=== PATIENT | male | born 1940 | race Hispanic/Latino ===

== ENCOUNTER 2025-02-10 11:56 | Day surgery (SDC) | payer OTHER, SELFPAY ==
[2025-02-10] VITALS (10 sets, daily range): BP systolic 103–116; BP diastolic 57–70; BMI 27.6
[2025-02-10] MEDS: LOW STRENGTH ASPIRIN 324 MG PO (13:17)
[2025-02-10] MEDS: NSS 226 ML IV (13:18)
--- NOTE | 2025-02-10 17:23 | ITS.CL.CATH ---
Search Analyst - Catheterization
Cardiac Catheterization
Procedure Report:
LEFT HEART CATHETERIZATION
Date of Procedure: February 10, 2025
Procedures performed:
1: Coronary angiography
2: Left ventricular hemodynamic assessment
Primary Care Physician: JOSSELIN Alonzo
Primary Flatwork Assembler: Dr. Baljinder Gutierrez
INDICATION: The patient is an 85-year-old man with a past medical history significant for moderate aortic valvular stenosis, hypertension, hyperlipidemia, and atypical chest pains who is referred for cardiac catheterization after experiencing more
atypical chest pain and a nuclear perfusion scan which now suggests possible LAD territory ischemia. Previous nuclear perfusion imaging in 2019 did not suggest LAD territory ischemia.
ACCESS: The patient was prepped and draped in usual sterile fashion. A 6 [place] sheath was placed in the right radial artery using the Seldinger over the wire technique.
HEMODYNAMIC FINDINGS (mmHg):
LV(s/d,EDP): 125/13, 15
Ao(s/d,m): 108/57, 75
Mean gradient across the aortic valve on pullback: 20 mmHg
ANGIOGRAPHIC FINDINGS:
Single-plane Left Ventriculography in [facility] Projection: Not done. LVEF by recent noninvasive studies was normal. The LV ejection fraction was 65% by Mathias's method with moderate to severe left ventricular hypertrophy and moderate aortic valve
stenosis with a mean gradient of 20 mmHg on echo October 12, 2024.
Coronary Angiography:
Dominance: Right
Left Main: Normal.
Left Anterior Descending: The left anterior descending artery is a large caliber vessel that has a true ostial 80% stenosis. The LAD is moderately calcified throughout with moderate luminal irregularities and a focal mid 60 to 70% stenosis. This
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 The distal vessels have mild luminal irregularities with normal flow.
Left Circumflex: The left circumflex is a large-caliber nondominant system that gives rise to 2 major distal obtuse marginal branches. These vessels have mild to moderate nonobstructive luminal irregularities throughout with normal flow.
Right Coronary: The right coronary artery is a medium caliber dominant vessel that gives rise to a relatively small branching posterior descending artery and small PLV branch system. The ostium has a calcific 50% stenosis with mild catheter
dampening with 6 [place] engagement from the radial approach. The proximal right has a phillips's crook appearance and has moderate nonobstructive luminal irregularities throughout the AV groove with at worst a 40% stenosis at the acute margin. The
posterior descending artery trifurcates into 3 vessels that have severe small vessel disease not amenable to percutaneous or surgical revascularization. The PLV branch system is small but widely patent.
Fluoroscopy Time (min): 5.4
Radiation Dose (mGy): 542
DAP (Gy.cm2): 33
Closure device: None. A TR band was applied for hemostasis at the right wrist.
Complications: None.
ASSESSMENT:
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 Disease in the distal right sided posterior descending artery is not amenable to intervention.
2: Moderate aortic valvular stenosis.
3: Well compensated left ventricular filling pressures.
CONCLUSIONS and RECOMMENDATIONS:
1: Formal CT surgical evaluation given true ostial LAD complicated by mid LAD obstructive disease. Advanced age may make surgical revascularization less attractive. Prior to proceeding with what would be a high risk PCI I would like formal CT
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 His valve disease is certainly not bad
enough to be driving symptoms however he will need a valve intervention at some point in the next several years. Will discuss with CT surgeon Dr. Yunior Valero.
2: Continue medical therapy with close clinical follow-up with Dr. Gutierrez as scheduled.
Stephanie Morrow M.D.
Copy to: JOSSELIN Alonzo
== END 2025-02-10 18:04 | disposition home or self-care (01) ==
LOC: CATH 11:56
PROVIDERS: ATTENDING PHYSICIAN Internal Medicine Interventional Cardiology; PRIMARYCARE PHYSICIAN Nurse Practitioner Adult Health; REFERRING PHYSICIAN Internal Medicine Cardiovascular Disease
DX: I25.10 Atherosclerotic heart disease of native coronary artery without angina pectoris (principal); I35.0 Nonrheumatic aortic (valve) stenosis; R07.89 Other chest pain; E78.5 Hyperlipidemia, unspecified; Q24.5 Malformation of coronary vessels
CPT/HCPCS: 93005; 93458; C1769; C1894; Q9967

== ENCOUNTER 2025-03-17 12:26 | Day surgery (SDC) | payer OTHER, SELFPAY ==
[2025-03-17] VITALS (17 sets, daily range): BP systolic 100–132; BP diastolic 59–72; BMI 27.0
[2025-03-17 12:55] LABS: Hematocrit 38.9 % (39.0-52.0); Hemoglobin 12.8 g/dL (13.0-18.0); Mean Corp Hgb Conc. 32.9 g/dL (33.0-37.0); Mean Corpuscular Volume 85.9 fL (80.0-94.0); Platelet Count 231 10^3/uL (130-400); Red Cell Dist. Width 14.3 % (11.5-14.5)
[2025-03-17 13:38] LABS: Blood Urea Nitrogen 28 mg/dl (9-20); Calcium 9.2 mg/dl (8.4-10.2); Carbon Dioxide 26 mmol/L (22-30); Chloride 105 mmol/L (98-107); Estimated Creatinine Clearance 52 ml/min; Glucose 94 mg/dl (70-99); Potassium 4.7 mmol/L (3.5-5.1); Sodium 138 mmol/L (135-145); eGFR > 60.00
--- NOTE | 2025-03-17 14:37 | ITS.CL.ANGIO ---
Site Leader - Angioplasty
Angioplasty
Procedure Report:
LEFT HEART CATHETERIZATION
Date of Procedure: March 17, 2025
Procedures performed:
1: Percutaneous coronary intervention of the ostial and mid LAD with placement of 2 drug-eluting stents (3.0 x 30 mm [place] ROSARIO to prox/mid and 3.5 x 18 mm [place] ROSARIO to ostial LAD postdilated at high pressure with a 3.75 mm diameter noncompliant
balloon)
Primary Care Provider: JOSESLIN Alonzo
Primary Shoe Lining Fitter: Dr. Baljinder Gutierrez
INDICATION: The patient is an 85-year-old man with a past medical history significant for moderate aortic valvular stenosis, hypertension, hyperlipidemia, and atypical chest pains who was referred for cardiac catheterization after experiencing more
atypical chest pain and a nuclear perfusion scan which now suggests possible LAD territory ischemia. Cath showed severe ostial and proximal/mid LAD stenosis in the setting of moderate aortic valvular stenosis. He was seen in formal consultation by
Dr. Valero from CT surgery. After a heart team discussion we have elected to perform LAD stenting.
ACCESS: The patient was prepped and draped in usual sterile fashion. A 7 [place] sheath was placed in the right common femoral artery using the Seldinger over the wire technique.
HEMODYNAMIC FINDINGS (mmHg):
LV(s/d,EDP): Valve not crossed
Ao(s/d,m): 125/67, 89
ANGIOGRAPHIC FINDINGS:
From 02/10/2025 report:
Dominance: Right
Left Main: Normal.
Left Anterior Descending: The left anterior descending artery is a large caliber vessel that has a true ostial 80% stenosis. The LAD is moderately calcified throughout with moderate luminal irregularities and a focal mid 60 to 70% stenosis. This
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 The distal vessels have mild luminal irregularities with normal flow.
Left Circumflex: The left circumflex is a large-caliber nondominant system that gives rise to 2 major distal obtuse marginal branches. These vessels have mild to moderate nonobstructive luminal irregularities throughout with normal flow.
Right Coronary: The right coronary artery is a medium caliber dominant vessel that gives rise to a relatively small branching posterior descending artery and small PLV branch system. The ostium has a calcific 50% stenosis with mild catheter
dampening with 6 [place] engagement from the radial approach. The proximal right has a phillips's crook appearance and has moderate nonobstructive luminal irregularities throughout the AV groove with at worst a 40% stenosis at the acute margin. The
posterior descending artery trifurcates into 3 vessels that have severe small vessel disease not amenable to percutaneous or surgical revascularization. The PLV branch system is small but widely patent.
Percutaneous Coronary Intervention (PCI): The patient was pretreated with aspirin and Plavix. Unfractionated heparin was given. The left main was engaged with a 7 [place] XB 4.0 guiding catheter. A Hi-Torque floppy wire was advanced down the LAD
and a BMW wire was advanced down the circumflex for protection. The mid LAD lesion was predilated with a 2.5 mm balloon and distal to proximal fashion. Next a 3.0 x 30 mm [place] drug-eluting stent was deployed at 18 joby for 25 seconds. Follow-up
angiography revealed an outstanding result. I then focused my attention on the ostial lesion. The ostium was predilated with the 2.5 x 15 mm balloon. Next a 3.5 x 18 mm [place] was deployed at 12 joby for 15 seconds. The stent was definitely
positioned covering the ostium with at least 3 mm of the stent extending back into the left main. Fortunately there was no major plaque shift into the wired circumflex vessel. The ostially stented segment was postdilated with a 3.75 mm diameter
noncompliant balloon inflated to 12 joby distally and 16 joby at the proximal edge. The wires were pulled back and final angiography was performed.
FINAL RESULT: 0% in-stent residual stenosis in both the ostial and proximal/mid stents with an outstanding angiographic result and normal flow in all distal vessels. There was some plaque shift with no more than 50% stenosis of the ostial
circumflex -normal flow in all distal vessels.
Fluoroscopy Time (min): 11.9
Radiation Dose (mGy): 1068
DAP (Gy.cm2): 54
Closure device: 8 [place] Angio-Seal to right common femoral artery. No acute complications.
Complications: None.
ASSESSMENT:
1: Successful PCI of the LAD ostium and proximal/mid LAD as described above with placement of 2 drug-eluting stents.
CONCLUSIONS and RECOMMENDATIONS:
1: Routine post ROSARIO PCI medical therapy and monitoring with aspirin 81 mg daily and clopidogrel 75 mg daily uninterrupted for a year and 81 mg of aspirin daily indefinitely.
2: Medical therapy for coronary artery disease and hypertension.
3: Clinical follow-up for known aortic stenosis as scheduled with Dr. Gutierrez.
Stephanie Morrow M.D.
[2025-03-17] MEDS: NSS 1000 IV (15:23)
[2025-03-17] MEDS: LOW STRENGTH ASPIRIN 81 MG PO (15:31)
--- NOTE | 2025-03-17 15:36 | PTCARENOTE ---
Received the patient from the clinical laboratory technician in his bed. The patient is aaox3, vital signs are stable. Sinus elisabeth with a HF of 58 is noted on the monitor. His right groin dressing is c/d/i. A positive right pedal pulse is noted. I instructed the patient
on his activity restrictions and expected oob time. Hia call lou is within reach.
[2025-03-17] MEDS: LIPITOR 40 MG PO (17:52)
--- NOTE | 2025-03-17 20:18 | PTCARENOTE ---
Pt rec'd at change of shift oob in recliner chair. Sinus on telemetry. No c/o cp or sob. Right femoral site with DDI.
[2025-03-18 04:02] VITALS: BP 128/71
[2025-03-18 04:40] LABS: Hematocrit 34.2 % (39.0-52.0); Hemoglobin 11.4 g/dL (13.0-18.0); Mean Corp Hgb Conc. 33.3 g/dL (33.0-37.0); Mean Corpuscular Volume 84.7 fL (80.0-94.0); Platelet Count 198 10^3/uL (130-400); Red Cell Dist. Width 14.1 % (11.5-14.5)
[2025-03-18 05:01] LABS: Blood Urea Nitrogen 24 mg/dl (9-20); Calcium 9.0 mg/dl (8.4-10.2); Carbon Dioxide 24 mmol/L (22-30); Chloride 105 mmol/L (98-107); Estimated Creatinine Clearance 59 ml/min; Glucose 85 mg/dl (70-99); HDL Cholesterol 41 mg/dl; LDL Cholesterol, Calculated 95 mg/dl; Potassium 4.2 mmol/L (3.5-5.1); Sodium 135 mmol/L (135-145); Very Low Density Lipoprotein 20 mg/dl (0-30); eGFR > 60.00
--- NOTE | 2025-03-18 07:24 | W.PN.CARDCBS ---
Addendum entered and electronically signed by Vladimir Rashid MD 03/18/25 08:35:
Patient interviewed and examined, note below reviewed in detail and agree unless otherwise specified.
Data reviewed.
He feels well
Some aortic stenosis on exam puncture site right femoral artery well-healed, pulses okay
Hemoglobin is 11.4, BUN and creatinine are 24 and 0.8
ECG is stable, no acute changes
Impression:
Doing well status post LAD PCI.
Okay for discharge.
Original Note:
Today's Communication / Plan
-
post PCI
DAPT
stable for d/c home
Impression / Plan
-
Primary Care Provider: JOSSELIN Alonzo
Primary Keeler Polygraph Operator: Dr. Baljinder Gutierrez
85-year-old man with a past medical history significant for moderate aortic valvular stenosis, hypertension, hyperlipidemia, and atypical chest pains who was referred for cardiac catheterization after experiencing more atypical chest pain and a
nuclear perfusion scan which now suggests possible LAD territory ischemia. Cath showed severe ostial and proximal/mid LAD stenosis in the setting of moderate aortic valvular stenosis. He was seen in formal consultation by Dr. Valero from CT surgery.
After a heart team discussion we have elected to perform LAD stenting.
Impression:
CAD by cath 02/10/25
post PCI LAD x 2 ROSARIO 03/17/25
HTN
Moderate Aortic stenosis MG 20mmHg
Hyperlipidemia
Asthma/COPD
LVH
CVA/TIA
Plan:
post stent to LADx2, feels good
Groin stable
tele SR no ectopy
DAPT ASA/Plavix, decrease ASA to 81mg daily
LDL 95, goal >55 will add Zetia, recheck lipids and LFTs in 6-8 weeks
continue metoprolol and isosorbide for residual RCA disease
Cardiac rehab c/s
Activity restrictions reviewed
groin check Saturday
f/u Dr. Gutierrez in 2-4 weeks
home today
Procedures performed:
1: Percutaneous coronary intervention of the ostial and mid LAD with placement of 2 drug-eluting stents (3.0 x 30 mm [place] ROSARIO to prox/mid and 3.5 x 18 mm [place] ROSARIO to ostial LAD postdilated at high pressure with a 3.75 mm diameter noncompliant
balloon)
Progress Note - Keeler Polygraph Operator
Subjective
Date of Service: March 18, 2025
denies cp, sob
Objective
Labs:
03/18/25 04:10
03/18/25 04:10
Labs
Hgb 11.4 g/dL (13.0-18.0) L 03/18/25 04:10
Hct 34.2 % (39.0-52.0) L 03/18/25 04:10
Plt Count 198 10^3/uL (130-400) 03/18/25 04:10
Sodium 135 mmol/L (135-145) 03/18/25 04:10
Potassium 4.2 mmol/L (3.5-5.1) 03/18/25 04:10
BUN 24 mg/dl (9-20) H 03/18/25 04:10
Creatinine 0.8 mg/dL (0.7-1.3) 03/18/25 04:10
Glucose 85 mg/dl (70-99) 03/18/25 04:10
Vital Signs and I&O:
Vital Signs
Temp Pulse Resp BP Pulse Ox
98.5 F 71 20 128/71 95
03/18/25 04:02 03/18/25 04:02 03/18/25 04:02 03/18/25 04:02 03/18/25 04:02
Vital Signs
Temp Pulse Resp BP Pulse Ox
98.5 F 71 20 128/71 95
03/18/25 04:02 03/18/25 04:02 03/18/25 04:02 03/18/25 04:02 03/18/25 04:02
Intake & Output
03/16/25 03/17/25 03/18/25 03/19/25
06:59 06:59 06:59 06:59
Intake Total 510 / 510
Balance 510 / 510
Physical Exam
Physical Exam
NAD< AOX3
S1, S2, RRR, II/ LIZETTE
CTAB, non labored, no wheeze
SNTND bsx4
R fem site c/d/i no HT, soft
[2025-03-18 07:28] VITALS: BP 127/92
[2025-03-18 08:17] LABS: ACT-LR - POC > 397 Seconds (116-155)
[2025-03-18 08:17] LABS: ACT-LR - POC > 397 Seconds (116-155)
[2025-03-18] MEDS: PLAVIX 75 MG PO (08:30)
[2025-03-18] MEDS: IMDUR (EXTENDED RELEASE) 30 MG PO (08:30)
[2025-03-18] MEDS: TOPROL XL 25 MG PO (08:30)
--- NOTE | 2025-03-18 09:24 | W.DS.TRANS ---
DC Summary - Lock Setter
-
Discharge Instructions:
Discharge Diagnosis/Procedures Angioplasty and stent x2 to Left Anterior
Descending artery
Diet Low Cholesterol
Driving Restrictions No driving for 24 hours
Other Services Cardiac Rehab
Instructions:
Stand-Alone Forms: DC Instructions- Cath/EP Lab
Changes to Home Medications: Yes
Discharge Medications:
DC Medications w/original date entered in [facility]
atorvastatin 40 mg tablet 40 mg PO QPM 02/10/25
budesonide-formoterol HFA 160 mcg-4.5 mcg/actuation aerosol inhaler 2 puff inhalation BID PRN asthma 02/10/25
isosorbide mononitrate 30 mg tablet,extended release 24 hr 30 mg PO DAILY 02/10/25
metoprolol succinate 25 mg tablet,extended release 24 hr 25 mg PO DAILY 02/10/25
nitroglycerin 0.4 mg sublingual tablet 0.4 mg sublingual [id number] PRN chest pain #25 tabs 02/10/25
clopidogrel 75 mg tablet (Plavix) 75 mg PO DAILY 03/17/25
aspirin 81 mg tablet 81 mg PO DAILY #0 tabs 03/18/25
ezetimibe 10 mg tablet (Zetia) 10 mg PO DAILY #30 tabs 03/18/25
Home Medication Changes
new to zetia, decreased ASA dose
Pending Results: No
[2025-03-18] MEDS: LOW STRENGTH ASPIRIN 81 MG PO (10:47)
--- NOTE | 2025-03-18 11:34 | PTCARENOTE ---
Patient seen by cardiology and is ok for discharge home. Reviewed discharge instructions including medication changes and post PCI restrictions and he states his understanding. Patient discharged home with his , aware of follow up appointments
that are scheduled.
== END 2025-03-18 11:00 | disposition home or self-care (01) ==
LOC: CATH 12:26
PROVIDERS: Nurse Practitioner; ATTENDING PHYSICIAN Internal Medicine Interventional Cardiology; OTHER PHYSICIAN Internal Medicine Cardiovascular Disease
DX: I25.10 Atherosclerotic heart disease of native coronary artery without angina pectoris (principal); I11.9 Hypertensive heart disease without heart failure; I35.0 Nonrheumatic aortic (valve) stenosis; E78.5 Hyperlipidemia, unspecified; J44.89 Other specified chronic obstructive pulmonary disease; I63.9 Cerebral infarction, unspecified; Z79.82 Long term (current) use of aspirin; Z79.02 Long term (current) use of antithrombotics/antiplatelets
CPT/HCPCS: 80048; 80061; 85027; 85347; 93005; C1725; C1760; C1769; C1874; C1887; C1894; C9600; Q9967